=== PATIENT | male | born 1990 | race African-American/Black ===

== ENCOUNTER 2016-12-19 22:34 | Emergency (ER) | payer OTHER ==
[~2016-12-19] VITALS: Ht 167.6 cm; Wt 91.4 kg
[~2016-12-19 22:34] MED LIST: NOHOMEMEDS
[2016-12-19 22:47] VITALS: BP 132/95
[2016-12-19 23:05] LABS: HEMATOCRIT 42.3 % (38.0-50.0); MCH 30.3 PG (29.0-34.0); MCHC 33.6 G/DL (30.0-36.0); MCV 90.4 FL (86-99); MEAN PLAT.VOLUME 9.6 uM^3 (9.0-12.4); PLATELET COUNT 214 K/uL (156-360); RBC DIS.WIDTH-CV 13.9 % (11.8-14.6); RBC DIS.WIDTH-SD 46.2 % (39-53); RED BLOOD COUNT 4.68 M/uL (4.00-5.50); WHITE BLOOD COUNT 6.6 K/uL (4.1-10.2)
[2016-12-19 23:25] LABS: TROP-I INTERPRETATION NEGATIVE; TROPONIN-I < 0.01 ng/mL (0.0-0.30)
[2016-12-19 23:27] LABS: CHLORIDE 106 mEq/L (99-109); POTASSIUM 3.9 mEq/L (3.7-5.4); SODIUM 140 mEq/L (136-147)
[2016-12-19 23:28] LABS: GLUCOSE 95 mg/dL (70-99)
[2016-12-19 23:30] LABS: ANION GAP 12 MEQ/L (2-14)
[2016-12-19 23:32] LABS: GFR ESTIMATE (CALCULATED) > 59 mL/min/
[2016-12-19 23:33] LABS: UREA NITROGEN (BUN) 13 mg/dL (9-23)
[2016-12-20] MEDS ORDERED: ZITHROMAX250 MG PO (00:23)
[2016-12-20] MEDS ORDERED: PROVENTIL HFA6.7 GM IH (00:23)
[2016-12-20] MEDS ORDERED: PREDNISONE50 MG PO (00:23)
== END 2016-12-20 00:30 | disposition home or self-care (01) ==
LOC: EME 22:34
DX: J40 Bronchitis, not specified as acute or chronic (principal); R51 Headache; R42 Dizziness and giddiness; R11.2 Nausea with vomiting, unspecified; F17.200 Nicotine dependence, unspecified, uncomplicated
CPT/HCPCS: 71020; 80048; 84484; 85027; 93005; 94640; 99281; 99284; J2930; J7512